=== PATIENT | female | born 1980 | race Caucasian/White ===

== ENCOUNTER 2020-04-26 16:54 | Emergency (ER) | payer SELFPAY ==
[~2020-04-26] VITALS: Ht 167.6 cm; Wt 54.4 kg
[2020-04-26 16:58] VITALS: BP 128/80
--- NOTE | 2020-04-26 17:35 | Emergency Room Report ---
History of Present Illness General Chief Complaint: Suicidal Present Illness HPI Pt. presents to the ED c/o feels very "targeted" everywhere she goes and wanting physician assisted suicide. She reports this has been going on for some years now. She has never sought help prior to yesterday because she "didn't realize it was a problem, but its affecting her life now". Pt. denies HI. She denies PSA's or a specific plan to hurt herself today. Pt. is reporting that She was at [facility] yesterday but they did not communicate well with her regarding the timeline and specifics of her stay so she left. She denies hallucinations. She denies drug use. Denies PmHx. Denies heart disease, liver disease or head injury. She denies . She denies cough, fevers or chills. She is reluctant to provide specific details or examples of being targeted. She denies verbal abuse. She denies physical abuse. She denies previous psychiatric inpatient hospitalizations. Allergies: Coded Allergies: No Known Allergies (Unverified , 04/26/20) COVID-19 Screening Contact w/high risk pt: No Experienced COVID-19 symptoms?: No COVID-19 Testing performed TAXICAB DRIVER: No Patient History Past Medical History: see triage record Past Surgical History: none Pertinent Family History: none Last Menstrual Period: 04/26/20 Now: No Reviewed Nursing Documentation: PMH: Agreed; PSxH: Agreed Review of Systems All Other Systems: negative except mentioned in HPI Physical Exam Vital Signs Date Time Temp Pulse Resp B/P (MAP) Pulse Ox O2 Delivery O2 Flow Rate FiO2 04/26/20 16:58 98.8 90 16 128/80 (96) 99 Room Air Sp02 EP Interpretation: reviewed, normal General Appearance: no apparent distress, alert, GCS 15, non-toxic Head: normocephalic, atraumatic Eyes: bilateral eye normal inspection, bilateral eye PERRL ENT: hearing grossly normal, normal voice Neck: full range of motion Respiratory: lungs clear, normal breath sounds, no respiratory distress, no accessory muscle use, no wheezing, speaking full sentences Cardiovascular #1: regular rate, rhythm, no edema, normal capillary refill Gastrointestinal: non tender, soft Rectal: deferred Genitourinary: normal inspection Musculoskeletal: back normal, normal range of motion, gait/station normal, non- tender Neurologic: alert, motor strength/tone normal, oriented x3, sensory intact, responsive, speech normal Psychiatric: judgement/insight normal, anxious - anxious and slightly paranoid. Suicide Risk Assessment: Suicidal Ideation: Yes - pt. said " I dont want to be around anymore and I need help in fixing my situation, I want a PA suicide". Had intent to initiate attempt: No Pt's plan for suicide attempt: No Has means to complete attempt: No Skin: no rash, normal color, other - No PSA scars, no areas of infection. Medical Decision Making PA Attestation Dr. Morrissey is my supervising Physician whom patient management has been discussed with. ER Course Pt. presents to the ED c/o feels very "targeted" everywhere she goes and wanting physician assisted suicide. She reports this has been going on for some years now. She has never sought help prior to yesterday because she "didn't realize it was a problem, but its affecting her life now". Pt. denies HI. She denies PSA's or a specific plan to hurt herself today. Pt. is reporting that She was at [facility] yesterday but they did not communicate well with her regarding the timeline and specifics of her stay so she left. She denies hallucinations. She denies drug use. Denies PmHx. Denies heart disease, liver disease or head injury. She denies . She denies cough, fevers or chills. She is reluctant to provide specific details or examples of being targeted. She denies verbal abuse. She denies physical abuse. She denies previous psychiatric inpatient hospitalizations. Pt is hyperactive, and has a very anxious, withheld and restless affect. She presents with several suit cases and bags. Ddx considered but are not limited to OD, SI/HI, psychosis, UTI, intoxication Vital signs: are WNL, pt. is afebrile H&PE are most consistent with behavioral/mental health issue. No specific plan to hurt herself or others. Does not appear to be clinically intoxicated. pt. is non-toxic in appearance and NAD other than being anxious. will do basic lab work and contact volunteer psychiatric facilities for transfer for psychiatric evaluation. She is voluntary and not on 5150 hold. ORDERS: --- PT. refused labs and wanted to leave.She would only give urine. She was very apprehensive about why she needs blood drawn if she just wants to talk to a psychiatrist. -CBC, CMP: pt. declined blood draw. -UA: negative for infection see results attached. -UDS: POSITIVE only for THC -Salicylates and Acetaminophen - pt. declined blood draw ED INTERVENTIONS: - DISPOSITION: Pt. wanted to leave she felt that our facility could not provide the type of medical care she was seeking. D/w pt. that we will facilitate her getting to a psychiatric facility for psychiatric evaluation. Pt. did not want to have labs drawn or wait for transport. Pt. Denies plans to hurt herself or others. Pt. wants to leave AMA. - At this time the patient is requesting to leave AGAINST MEDICAL ADVICE. I believe that this patient has the capacity to make decisions on her own. She denies specific I discussed with the patient the risks of leaving AMA. Some of these risks include delay in diagnosis and treatment, as well as worsening of symptoms, organ damage, and permanent disability or even . After discussing these risks with the patient. She continues to express her want to leave AGAINST MEDICAL ADVICE. I encouraged the patient to return at any time, and that she will be welcome here in the emergency department to continue medical management and proper transfer to a volunteer psychiatric facility. Labs Test 04/26/20 17:30 Urine Opiates Screen Negative (NEGATIVE) Urine Barbiturates Screen Negative (NEGATIVE) Phencyclidine (PCP) Screen Negative (NEGATIVE) Urine Amphetamines Screen Negative (NEGATIVE) Urine Benzodiazepines Screen Negative (NEGATIVE) Urine Cocaine Screen Negative (NEGATIVE) Urine Marijuana (THC) Screen Positive (NEGATIVE) Last Vital Signs Date Time Temp Pulse Resp B/P (MAP) Pulse Ox O2 Delivery O2 Flow Rate FiO2 04/26/20 16:58 98.8 90 16 128/80 (96) 99 Room Air Disposition: AGAINST MEDICAL ADVICE Condition: Unknown Patient Instructions: Suicidal Feelings: How to Help Yourself Additional Instructions: You are leaving against medical advice prior to full medical evaluation. You are encouraged to return to the ED for continued evaluation if you decided to change your mind. Leaving AMA puts you at risk for : worsening of current symptoms, new symptoms, delay in diagnosis and treatment, surgical emergency, permanent disability, and . you are releasing medical liability by your refusal for care. It has been determined that, at this time, you have the capacity to make decisions regarding your health management. Savanna Rivero Apr 26, 2020 17:35
[2020-04-26 18:04] VITALS: BP 128/80
== END 2020-04-26 17:20 | disposition left against medical advice (07) ==
LOC: EDBD 16:54 → EMR 17:05
DX: R46.89 Other symptoms and signs involving appearance and behavior (principal); R45.851 Suicidal ideations
CPT/HCPCS: 80307; 99283